=== PATIENT | male | born 1985 | race Caucasian/White ===

== ENCOUNTER 2017-03-18 15:55 | Inpatient (IN) ==
[2017-03-18 17:18] LABS: Hematocrit [HCT] 43.6 % (42.0-52.0); Hemoglobin [HGB] 15.5 g/dL (14.0-18.0); MEAN CORPUSCULAR HEMOGLOBIN 31.6 PG (27-31); MEAN CORPUSCULAR HGB CONC 35.6 g/dL (33-37); MEAN CORPUSCULAR VOLUME 88.8 FL (80-90); MEAN PLATELET VOLUME 11.2 FL (7.4-12.2); RED BLOOD COUNT 4.91 10^6/uL (4.70-6.10)
[2017-03-18 17:31] LABS: BLOOD UREA NITROGEN 15 mg/dL (7-22); BUN/CREATININE RATIO 18.75 (6-20); SERUM ALBUMIN 4.9 g/dL (3.5-4.8)
[2017-03-18] MEDS ORDERED: Sodium Chloride 0.9% 2,000 ML ONE (17:49)
[2017-03-18] MEDS ORDERED: INSULIN REGULAR, HUMAN 100 UNIT/1 ML - 3 ML IV ONE (17:51)
[2017-03-18] MEDS ORDERED: LIDOCAINE W/ SODIUM BICARB 0.5 ML SYR SUBD PRN (17:51)
[2017-03-18] MEDS ORDERED: NORMAL SALINE 10 ML SYRINGE FLUSH IVP PRN (17:51)
[2017-03-18] MEDS ORDERED: ONDANSETRON 4 MG/2 ML VIAL IVP PRN (17:51)
[2017-03-18] MEDS ORDERED: Sodium Chloride 0.9% 2,000 ML PRIMARY IV ONE (17:56)
[2017-03-18] MEDS ORDERED: Insulin Regular Inj 100 UNIT in Sodium Chloride 0.9% 99 ML IV SCH (18:00)
[2017-03-18 18:09] LABS: MAGNESIUM 1.8 mg/dL (1.6-2.4)
[2017-03-18] MEDS ORDERED: LIDOCAINE W/ SODIUM BICARB 0.5 ML SYR ONE (18:31)
--- NOTE | 2017-03-18 18:46 | PDOC ---
HPI - History of Present Illness Date and Time of Service: 03/18/2017, 1842 Chief Complaint: Dry mouth and urinating frequently History of Present Illness: This very pleasant 31-year-old male without prior past medical history who came in today to see Dr. Contreras with complaints of having a very dry mouth, excessive thirst, and urinating frequently at night. He states he symptoms have been noticeable over the last several weeks. He's also noticed that he's lost about 20 pounds, although he cannot give a good timeframe on that. He noticed the loop and his belt was getting looser. He was over 180 pounds at one time and weighed today at 165 pounds. He denies any fevers, chills, nausea or vomiting. He may have had a remote cough but does not recall any particular viral illnesses. Laboratory workup today revealed a blood sugar over 600, hemoglobin A1c over 13, and CO2 at a borderline acidotic level at 23 on his basic metabolic panel. The patient states that he had a family history of diabetes in his grandfather although it is not known if he had type I or type II diabetes. There were no exacerbating factors. The patient tried to treat himself by taking in more fluids. He denies any fevers, headaches, but has had some increased fatigue. Given a lab abnormalities noted with Dr. Contreras, we discussed the patient's situation and I feel it best to directly admit the patient for management of early diabetic ketoacidosis, diabetes education, and starting insulin therapy. Past Medical History Medical History: None Surgical History: None Pertinent Family History: Significant for diabetes in his grandfather. Past Social History: Does not smoke but does occasionally drink. for last year and a half. Works as a truck packer here in town. Has children that are described as healthy. Tobacco Use: Never Smoker In the Past 12 Months, Have Used or Abuse Any of the Following Substance: None Alcohol Use: Occasionally Medication / Allergies Home Medications: Home Medications Medication Instructions Recorded Confirmed Type NK [No Home Medications Reported] 04/22/15 03/18/17 History Allergies/Adverse Reactions: Allergies 3 Allergy/AdvReac Type Severity Reaction Status Date / Time No Known Allergies Allergy Verified 03/18/17 15:30 Review of Systems - Review of Systems All Systems: Reviewed & No Additional Complaints Except as Stated (I did a 12 point review systems and was negative other than that discussed in history present illness.) Exam - Vitals Vital Signs: Vital Signs Temperature 97.8 F Pulse Rate 65 Respiratory Rate 12 Blood Pressure 127/90 Pulse Ox 94 Weight 165 lb - General General Appearance: No Acute Distress, Cooperative - Head Head Exam: Normal Inspection, Normocephalic, Atraumatic - Eye Eye Exam: POSITIVE: No Scleral Icterus - ENT ENT Exam: POSITIVE: Mucous Membranes Dry - Neck Neck Exam: Normal Inspection, No Tenderness, No Lymphadenopathy, No Thyromegaly - Respiratory Respiratory Exam: POSITIVE: Breathing Non Labored, Normal to Percussion and Palpation, Wheezes (Expiratory.) - Cardiovascular Cardiovascular Exam: POSITIVE: RRR, No Murmur, No Clicks, No Gallops, No Rubs, No JVD - GI/Abdominal GI/Abdominal Exam: POSITIVE: Normal Bowel Sounds, Non Tender, Non Distended, Soft - Rectal Rectal Exam: POSITIVE: Deferred - External Exam: POSITIVE: Deferred Exam: POSITIVE: Deferred - Extremities Extremities Exam: POSITIVE: No Clubbing Present, No Edema Present, No Cyanosis Present - Back Back Exam: POSITIVE: No CVA Tenderness - Neurological Neurological Exam: POSITIVE: Alert, Oriented x 3, No Facial Droop, Speech Intact / Clear, Moves All Extremities Equally - Psychiatric Psychiatric Exam: POSITIVE: Normal Affect, Normal Mood - Central Line Examination Central Line Present on Admission: No Results - Labs CBC and BMP: 03/18/17 17:05 03/18/17 17:05 Additional Lab Results: Laboratory Results 03/18/17 03/18/17 03/18/17 Range/Units 17:05 17:05 17:05 WBC 5.32 (4.8-10.8) 10^3/uL RBC 4.91 (4.70-6.10) 10^6/uL Hgb 15.5 (14.0-18.0) g/dL Hct 43.6 (42.0-52.0) % MCV 88.8 (80-90) FL MCH 31.6 H (27-31) PG MCHC 35.6 (33-37) g/dL RDW Std Deviation 36.8 L (39-50) fL RDW Coeff of Chana 11.6 (11.5-14.5) % Plt Count 254 (140-350) 10*3/uL MPV 11.2 (7.4-12.2) FL Sodium 129 L (135-145) meq/L Potassium 5.0 (3.8-5.2) meq/L Chloride 87 L (98-112) meq/L Carbon Dioxide 23 (23-33) meq/L Anion Gap 19 (5-20) BUN 15 (7-22) mg/dL Creatinine 0.8 (0.70-1.50) mg/dL Estimated GFR > 60 (>60 ml/min/1.73m(2)) BUN/Creatinine Ratio 18.75 (6-20) Glucose 689 H* (78-110) mg/dL Calculated Osmolality 301.0 H (267-292) mOsm/kg Calcium 10.3 (8.7-10.7) mg/dL Phosphorus (2.4-4.3) mg/dl Magnesium (1.6-2.4) mg/dL Total Bilirubin 0.9 (0.3-1.2) mg/dL AST 32 (21-57) IU/L ALT 65 (21-72) IU/L Alkaline Phosphatase 111 (38-126) IU/L Total Protein 7.5 (6.1-8.0) g/dL Albumin 4.9 H (3.5-4.8) g/dL Globulin 2.6 (2.50-4.10) g/dL Albumin/Globulin Ratio 1.80 (1.3-2.0) mg/g TSH 1.31 (0.2700-4.2000) uIU/mL Acetone Level (NEGATIVE) 03/18/17 03/18/17 Range/Units 17:55 18:00 WBC (4.8-10.8) 10^3/uL RBC (4.70-6.10) 10^6/uL Hgb (14.0-18.0) g/dL Hct (42.0-52.0) % MCV (80-90) FL MCH (27-31) PG MCHC (33-37) g/dL RDW Std Deviation (39-50) fL RDW Coeff of Chana (11.5-14.5) % Plt Count (140-350) 10*3/uL MPV (7.4-12.2) FL Sodium (135-145) meq/L Potassium (3.8-5.2) meq/L Chloride (98-112) meq/L Carbon Dioxide (23-33) meq/L Anion Gap (5-20) BUN (7-22) mg/dL Creatinine (0.70-1.50) mg/dL Estimated GFR (>60 ml/min/1.73m(2)) BUN/Creatinine Ratio (6-20) Glucose (78-110) mg/dL Calculated Osmolality (267-292) mOsm/kg Calcium (8.7-10.7) mg/dL Phosphorus 4.5 H (2.4-4.3) mg/dl Magnesium 1.8 (1.6-2.4) mg/dL Total Bilirubin (0.3-1.2) mg/dL AST (21-57) IU/L ALT (21-72) IU/L Alkaline Phosphatase (38-126) IU/L Total Protein (6.1-8.0) g/dL Albumin (3.5-4.8) g/dL Globulin (2.50-4.10) g/dL Albumin/Globulin Ratio (1.3-2.0) mg/g TSH (0.2700-4.2000) uIU/mL Acetone Level Small (NEGATIVE) Assessment and Plan - Patient Problems (1) Diabetic ketoacidosis Current Visit: Yes Status: Acute Code(s): E13.10 - Other specified diabetes mellitus with ketoacidosis without coma Qualifiers: Diabetes mellitus type: type 1 Diabetes mellitus complication detail: without coma Qualified Code(s): E10.10 - Type 1 diabetes mellitus with ketoacidosis without coma (2) Diabetes mellitus type I Current Visit: Yes Status: Acute Code(s): E10.9 - Type 1 diabetes mellitus without complications Qualifiers: Diabetes mellitus complication status: with ketoacidosis Diabetes mellitus complication detail: without coma Qualified Code(s): E10.10 - Type 1 diabetes mellitus with ketoacidosis without coma - Assessment / Plan Additional Assessment/Plan Details: After discussing with Dr. Contreras, I felt that it would be best to admit the patient to the intensive care unit. Given that the CO2 on the metabolic panel is around 23, we may be an early diabetic ketoacidosis. This certainly excellent type I diabetes mellitus type seems to fit the patient's body habitus , sudden onset, albeit he would be a little bit out in terms of age. Start insulin drip, give 2 L of normal saline right off the bat, and then reduce to 125 mL per hour. I'll have the patient eat a consistent carbohydrate diet. When the blood sugars 250 or below, we will switch to D5 fluids. Check electrolytes every 4 hours for at least 5 checks. Hopefully tomorrow we can convert the patient to an insulin regimen. Diabetes education and dietary education for diabetes. I will give the patient some handouts and type I diabetes. Try to confirm this as best as we can with a C-peptide level which is artery drawn and is pending, as well as islet cell antibodies. I have sent a couple of those off as well. It may help that the patient eventually visit with an [employer] consultant, but first things first, rehydration, clear acid levels and acetone levels, and I do note that the acetone is in the serum which suggest diabetic ketoacidosis as well and type I diabetes. Given the nature of insulin drips, we'll have the patient in the intensive care unit for close monitoring. Check thyroid status as well. I have discussed with the patient, answered some questions at bedside, but he is a little overwhelmed, we'll try to approach this is slowly as we can to help him absorb as much information as he can during the hospital stay. Both him and his are in agreement with the plan.
[2017-03-18 18:52] LABS: BLOOD UREA NITROGEN 11 mg/dL (7-22)
[2017-03-18] MEDS: ACETAMINOPHEN 325 MG TABLET PO PRN (19:00)
[2017-03-18 19:36] LABS: VENOUS PH 7.35 (7.32-7.42)
[2017-03-18] MEDS: D5-1/2NS + 20mEq KCL 1,000 ML PRIMARY IV SCH (20:30)
[2017-03-18 22:07] LABS: MAGNESIUM 1.6 mg/dL (1.6-2.4)
[2017-03-18 22:08] LABS: BLOOD UREA NITROGEN 13 mg/dL (7-22); BUN/CREATININE RATIO 21.66 (6-20)
[2017-03-18] MEDS ORDERED: Magnesium Sulfate 2gm (Premix) 2 GM/50 ML BAG IV ONE (22:21)
[2017-03-18] MEDS ORDERED: Potassium Phoshate Inj 40 MMOL in D5W 250 ML IV ONE (22:21)
[2017-03-18] MEDS: Sodium Chloride 0.9% 1,000 ML PRIMARY IV SCH (22:44)
[2017-03-19] MEDS ORDERED: PHOS-NAK 1 EACH POWD.PACK PO ONE (00:14)
[2017-03-19] MEDS ORDERED: DEXTROSE 50%-WATER SYRINGE 50 ML SYRINGE ONE (02:10)
[2017-03-19 02:17] LABS: BLOOD UREA NITROGEN 14 mg/dL (7-22); MAGNESIUM 2.2 mg/dL (1.6-2.4)
[2017-03-19] MEDS ORDERED: DEXTROSE 50%-WATER SYRINGE 50 ML SYRINGE IVP ONE (02:42)
[2017-03-19] MEDS: D5-1/2NS + 20mEq KCL 1,000 ML PRIMARY IV SCH ×2 (02:48→12:35)
[2017-03-19] MEDS: Sodium Chloride 0.9% 1,000 ML PRIMARY IV SCH ×2 (02:48→12:34)
[2017-03-19] MEDS ORDERED: Insulin Glargine SoloStar Inj 100 UNIT/ML INSULN.PEN SUBCUT ONE ×2 (03:01→06:46)
[2017-03-19] MEDS ORDERED: Insulin Lispro Flexpen 300 UNIT/3 ML INSULN.PEN SUBCUT ONE ×3 (04:14→10:31)
[2017-03-19 06:24] LABS: CHOL/HDL RATIO 4.51 RATIO (0-4.0); SERUM CHOLESTEROL 122 mg/dL (120-200)
[2017-03-19 06:27] LABS: BLOOD UREA NITROGEN 15 mg/dL (7-22)
[2017-03-19 06:28] LABS: MAGNESIUM 1.8 mg/dL (1.6-2.4)
[2017-03-19] MEDS ORDERED: Insulin Lispro Flexpen 300 UNIT/3 ML INSULN.PEN SUBCUT SCH ×2 (07:00→11:00)
[2017-03-19] MEDS: ACETAMINOPHEN 325 MG TABLET PO PRN (08:03)
[2017-03-19] MEDS ORDERED: Pantoprazole Inj 40 MG in Normal Saline Flush 10 ML IVP SCH (09:00)
[2017-03-19] MEDS ORDERED: ACETAMINOPHEN 325 MG TABLET PO PRN (10:11)
[2017-03-19 10:23] LABS: MAGNESIUM 1.6 mg/dL (1.6-2.4)
[2017-03-19 10:34] LABS: BLOOD UREA NITROGEN 12 mg/dL (7-22)
[2017-03-19] MEDS ORDERED: DEXTROSE 50%-WATER SYRINGE 50 ML SYRINGE IVP PRN (11:43)
[2017-03-19] MEDS ORDERED: Glucagon Inj Vial 1 MG/ML VIAL IM PRN (11:43)
[2017-03-19] MEDS ORDERED: DEXTROSE 31 GM GEL PO PRN (11:43)
[2017-03-19] MEDS ORDERED: Insulin Sliding Scale Protocol SUBCUT PRN (11:43)
[2017-03-19] MEDS: Insulin Lispro Flexpen 300 UNIT/3 ML INSULN.PEN SUBCUT SCH ×5 (12:00→20:17)
[2017-03-19] MEDS: Sodium Chl 0.45% 1,000 ML PRIMARY IV SCH ×2 (14:23→22:34)
[2017-03-19 17:19] LABS: BLOOD UREA NITROGEN 13 mg/dL (7-22); BUN/CREATININE RATIO 21.66 (6-20)
[2017-03-19] MEDS ORDERED: POTASSIUM CHLORIDE 20 MEQ TAB PO ONE (19:51)
--- NOTE | 2017-03-19 19:57 | PDOC(PROG) ---
Date and Time of Service: 03/19/20171953 Interval History: No completes of chest pain, shortness breath, nausea or vomiting. I saw twice today. He seems to be doing much better in terms of managing his blood sugar checks. Feels much better control with that. He feels like he can manage pens for insulin at this point. He still has ketones in the serum. Had headaches earlier this morning but those seem to have resolved. Had a little tightness with breathing and that resolved spontaneously. It might be related to fluid intake via IV fluids. Objective : Data - Labs CBC and BMP: 03/18/17 17:05 03/19/17 17:09 Additional Lab Results: Laboratory Results 03/18/17 03/18/17 03/18/17 Range/Units 17: 17: 17:05 WBC 5.32 (4.8-10.8) 10^3/uL RBC 4.91 (4.70-6.10) 10^6/uL Hgb 15.5 (14.0-18.0) g/dL Hct 43.6 (42.0-52.0) % MCV 88.8 (80-90) FL MCH 31.6 H (27-31) PG MCHC 35.6 (33-37) g/dL RDW Std Deviation 36.8 L (39-50) fL RDW Coeff of Chana 11.6 (11.5-14.5) % Plt Count 254 (140-350) 10*3/uL MPV 11.2 (7.4-12.2) FL VBG pH (7.32-7.42) VBG pCO2 (45-55) mmHg VBG HCO3 (22-26) mmol/L VBG Base Excess (-2-2) MMOL/L Sodium 129 L (135-145) meq/L Potassium 5.0 (3.8-5.2) meq/L Chloride 87 L (98-112) meq/L Carbon Dioxide 23 (23-33) meq/L Anion Gap 19 (5-20) BUN 15 (7-22) mg/dL Creatinine 0.8 (0.70-1.50) mg/dL Estimated GFR > 60 (>60 ml/min/1.73m(2)) BUN/Creatinine Ratio 18.75 (6-20) Glucose 689 H* (78-110) mg/dL Calculated Osmolality 301.0 H (267-292) mOsm/kg Lactic Acid (0.70-2.10) MMOL/L Calcium 10.3 (8.7-10.7) mg/dL Phosphorus (2.4-4.3) mg/dl Magnesium (1.6-2.4) mg/dL Total Bilirubin 0.9 (0.3-1.2) mg/dL AST 32 (21-57) IU/L ALT 65 (21-72) IU/L Alkaline Phosphatase 111 (38-126) IU/L Total Protein 7.5 (6.1-8.0) g/dL Albumin 4.9 H (3.5-4.8) g/dL Globulin 2.6 (2.50-4.10) g/dL Albumin/Globulin Ratio 1.80 (1.3-2.0) mg/g Triglycerides (44-200) mg/dL Cholesterol (120-200) mg/dL LDL Cholesterol, Calc mg/dL VLDL Cholesterol (0-40) mg/dL HDL Cholesterol (40-150) mg/dL Cholesterol/HDL Ratio (0-4.0) RATIO TSH 1.31 (0.2700-4.2000) uIU/mL Free T4 (0.93-1.71) ng/dL Urine Acetone Acetone Level (NEGATIVE) 03/18/17 03/18/17 03/18/17 Range/Units 17:55 18:00 18:35 WBC (4.8-10.8) 10^3/uL RBC (4.70-6.10) 10^6/uL Hgb (14.0-18.0) g/dL Hct (42.0-52.0) % MCV (80-90) FL MCH (27-31) PG MCHC (33-37) g/dL RDW Std Deviation (39-50) fL RDW Coeff of Chana (11.5-14.5) % Plt Count (140-350) 10*3/uL MPV (7.4-12.2) FL VBG pH 7.35 (7.32-7.42) VBG pCO2 30 L (45-55) mmHg VBG HCO3 17 L (22-26) mmol/L VBG Base Excess -9 L (-2-2) MMOL/L Sodium (135-145) meq/L Potassium (3.8-5.2) meq/L Chloride (98-112) meq/L Carbon Dioxide (23-33) meq/L Anion Gap (5-20) BUN (7-22) mg/dL Creatinine (0.70-1.50) mg/dL Estimated GFR (>60 ml/min/1.73m(2)) BUN/Creatinine Ratio (6-20) Glucose (78-110) mg/dL Calculated Osmolality (267-292) mOsm/kg Lactic Acid (0.70-2.10) MMOL/L Calcium (8.7-10.7) mg/dL Phosphorus 4.5 H (2.4-4.3) mg/dl Magnesium 1.8 (1.6-2.4) mg/dL Total Bilirubin (0.3-1.2) mg/dL AST (21-57) IU/L ALT (21-72) IU/L Alkaline Phosphatase (38-126) IU/L Total Protein (6.1-8.0) g/dL Albumin (3.5-4.8) g/dL Globulin (2.50-4.10) g/dL Albumin/Globulin Ratio (1.3-2.0) mg/g Triglycerides (44-200) mg/dL Cholesterol (120-200) mg/dL LDL Cholesterol, Calc mg/dL VLDL Cholesterol (0-40) mg/dL HDL Cholesterol (40-150) mg/dL Cholesterol/HDL Ratio (0-4.0) RATIO TSH (0.2700-4.2000) uIU/mL Free T4 (0.93-1.71) ng/dL Urine Acetone Acetone Level Small (NEGATIVE) 03/18/17 03/18/17 03/18/17 Range/Units 18:41 18:41 21:56 WBC (4.8-10.8) 10^3/uL RBC (4.70-6.10) 10^6/uL Hgb (14.0-18.0) g/dL Hct (42.0-52.0) % MCV (80-90) FL MCH (27-31) PG MCHC (33-37) g/dL RDW Std Deviation (39-50) fL RDW Coeff of Chana (11.5-14.5) % Plt Count (140-350) 10*3/uL MPV (7.4-12.2) FL VBG pH (7.32-7.42) VBG pCO2 (45-55) mmHg VBG HCO3 (22-26) mmol/L VBG Base Excess (-2-2) MMOL/L Sodium 137 137 (135-145) meq/L Potassium 3.0 L D 3.4 L (3.8-5.2) meq/L Chloride 107 101 (98-112) meq/L Carbon Dioxide 17 L 25 (23-33) meq/L Anion Gap 13 11 (5-20) BUN 11 13 (7-22) mg/dL Creatinine 0.5 L 0.6 L (0.70-1.50) mg/dL Estimated GFR > 60 > 60 (>60 ml/min/1.73m(2)) BUN/Creatinine Ratio 22.00 H 21.66 H (6-20) Glucose 361 H 202 H (78-110) mg/dL Calculated Osmolality 297.0 H 289.0 (267-292) mOsm/kg Lactic Acid 0.8 (0.70-2.10) MMOL/L Calcium 6.8 L 8.7 (8.7-10.7) mg/dL Phosphorus (2.4-4.3) mg/dl Magnesium (1.6-2.4) mg/dL Total Bilirubin (0.3-1.2) mg/dL AST (21-57) IU/L ALT (21-72) IU/L Alkaline Phosphatase (38-126) IU/L Total Protein (6.1-8.0) g/dL Albumin (3.5-4.8) g/dL Globulin (2.50-4.10) g/dL Albumin/Globulin Ratio (1.3-2.0) mg/g Triglycerides (44-200) mg/dL Cholesterol (120-200) mg/dL LDL Cholesterol, Calc mg/dL VLDL Cholesterol (0-40) mg/dL HDL Cholesterol (40-150) mg/dL Cholesterol/HDL Ratio (0-4.0) RATIO TSH (0.2700-4.2000) uIU/mL Free T4 (0.93-1.71) ng/dL Urine Acetone Acetone Level (NEGATIVE) 03/18/17 03/19/17 03/19/17 Range/Units 21:56 00:13 02:00 WBC (4.8-10.8) 10^3/uL RBC (4.70-6.10) 10^6/uL Hgb (14.0-18.0) g/dL Hct (42.0-52.0) % MCV (80-90) FL MCH (27-31) PG MCHC (33-37) g/dL RDW Std Deviation (39-50) fL RDW Coeff of Chana (11.5-14.5) % Plt Count (140-350) 10*3/uL MPV (7.4-12.2) FL VBG pH (7.32-7.42) VBG pCO2 (45-55) mmHg VBG HCO3 (22-26) mmol/L VBG Base Excess (-2-2) MMOL/L Sodium 138 (135-145) meq/L Potassium 3.5 L (3.8-5.2) meq/L Chloride 102 (98-112) meq/L Carbon Dioxide 26 (23-33) meq/L Anion Gap 10 (5-20) BUN 14 (7-22) mg/dL Creatinine 0.7 (0.70-1.50) mg/dL Estimated GFR > 60 (>60 ml/min/1.73m(2)) BUN/Creatinine Ratio 20.00 (6-20) Glucose 63 L (78-110) mg/dL Calculated Osmolality 284.0 (267-292) mOsm/kg Lactic Acid (0.70-2.10) MMOL/L Calcium 8.9 (8.7-10.7) mg/dL Phosphorus 2.7 (2.4-4.3) mg/dl Magnesium 1.6 (1.6-2.4) mg/dL Total Bilirubin (0.3-1.2) mg/dL AST (21-57) IU/L ALT (21-72) IU/L Alkaline Phosphatase (38-126) IU/L Total Protein (6.1-8.0) g/dL Albumin (3.5-4.8) g/dL Globulin (2.50-4.10) g/dL Albumin/Globulin Ratio (1.3-2.0) mg/g Triglycerides (44-200) mg/dL Cholesterol (120-200) mg/dL LDL Cholesterol, Calc mg/dL VLDL Cholesterol (0-40) mg/dL HDL Cholesterol (40-150) mg/dL Cholesterol/HDL Ratio (0-4.0) RATIO TSH (0.2700-4.2000) uIU/mL Free T4 (0.93-1.71) ng/dL Urine Acetone Acetone Level Small (NEGATIVE) 03/19/17 03/19/17 03/19/17 Range/Units 02:00 05:09 05:09 WBC (4.8-10.8) 10^3/uL RBC (4.70-6.10) 10^6/uL Hgb (14.0-18.0) g/dL Hct (42.0-52.0) % MCV (80-90) FL MCH (27-31) PG MCHC (33-37) g/dL RDW Std Deviation (39-50) fL RDW Coeff of Chana (11.5-14.5) % Plt Count (140-350) 10*3/uL MPV (7.4-12.2) FL VBG pH (7.32-7.42) VBG pCO2 (45-55) mmHg VBG HCO3 (22-26) mmol/L VBG Base Excess (-2-2) MMOL/L Sodium 135 (135-145) meq/L Potassium 4.2 (3.8-5.2) meq/L Chloride 101 (98-112) meq/L Carbon Dioxide 22 L (23-33) meq/L Anion Gap 12 (5-20) BUN 15 (7-22) mg/dL Creatinine 0.6 L (0.70-1.50) mg/dL Estimated GFR > 60 (>60 ml/min/1.73m(2)) BUN/Creatinine Ratio 25.00 H (6-20) Glucose 251 H (78-110) mg/dL Calculated Osmolality 288.0 (267-292) mOsm/kg Lactic Acid 0.7 (0.70-2.10) MMOL/L Calcium 8.3 L (8.7-10.7) mg/dL Phosphorus 3.4 (2.4-4.3) mg/dl Magnesium 2.2 (1.6-2.4) mg/dL Total Bilirubin (0.3-1.2) mg/dL AST (21-57) IU/L ALT (21-72) IU/L Alkaline Phosphatase (38-126) IU/L Total Protein (6.1-8.0) g/dL Albumin (3.5-4.8) g/dL Globulin (2.50-4.10) g/dL Albumin/Globulin Ratio (1.3-2.0) mg/g Triglycerides 105 (44-200) mg/dL Cholesterol 122 (120-200) mg/dL LDL Cholesterol, Calc 74.000 mg/dL VLDL Cholesterol 21 (0-40) mg/dL HDL Cholesterol 27 L (40-150) mg/dL Cholesterol/HDL Ratio 4.51 H (0-4.0) RATIO TSH (0.2700-4.2000) uIU/mL Free T4 (0.93-1.71) ng/dL Urine Acetone Small Acetone Level Small (NEGATIVE) 03/19/17 03/19/17 03/19/17 Range/Units 05:09 05:09 10:06 WBC (4.8-10.8) 10^3/uL RBC (4.70-6.10) 10^6/uL Hgb (14.0-18.0) g/dL Hct (42.0-52.0) % MCV (80-90) FL MCH (27-31) PG MCHC (33-37) g/dL RDW Std Deviation (39-50) fL RDW Coeff of Chana (11.5-14.5) % Plt Count (140-350) 10*3/uL MPV (7.4-12.2) FL VBG pH (7.32-7.42) VBG pCO2 (45-55) mmHg VBG HCO3 (22-26) mmol/L VBG Base Excess (-2-2) MMOL/L Sodium 134 L (135-145) meq/L Potassium 4.3 (3.8-5.2) meq/L Chloride 101 (98-112) meq/L Carbon Dioxide 21 L (23-33) meq/L Anion Gap 12 (5-20) BUN 12 (7-22) mg/dL Creatinine 0.6 L (0.70-1.50) mg/dL Estimated GFR > 60 (>60 ml/min/1.73m(2)) BUN/Creatinine Ratio 20.00 (6-20) Glucose 348 H (78-110) mg/dL Calculated Osmolality 291.0 (267-292) mOsm/kg Lactic Acid (0.70-2.10) MMOL/L Calcium 8.7 (8.7-10.7) mg/dL Phosphorus 4.9 H (2.4-4.3) mg/dl Magnesium 1.8 (1.6-2.4) mg/dL Total Bilirubin (0.3-1.2) mg/dL AST (21-57) IU/L ALT (21-72) IU/L Alkaline Phosphatase (38-126) IU/L Total Protein (6.1-8.0) g/dL Albumin (3.5-4.8) g/dL Globulin (2.50-4.10) g/dL Albumin/Globulin Ratio (1.3-2.0) mg/g Triglycerides (44-200) mg/dL Cholesterol (120-200) mg/dL LDL Cholesterol, Calc mg/dL VLDL Cholesterol (0-40) mg/dL HDL Cholesterol (40-150) mg/dL Cholesterol/HDL Ratio (0-4.0) RATIO TSH (0.2700-4.2000) uIU/mL Free T4 1.48 (0.93-1.71) ng/dL Urine Acetone Acetone Level (NEGATIVE) 03/19/17 03/19/17 Range/Units 10:06 17:09 WBC (4.8-10.8) 10^3/uL RBC (4.70-6.10) 10^6/uL Hgb (14.0-18.0) g/dL Hct (42.0-52.0) % MCV (80-90) FL MCH (27-31) PG MCHC (33-37) g/dL RDW Std Deviation (39-50) fL RDW Coeff of Chana (11.5-14.5) % Plt Count (140-350) 10*3/uL MPV (7.4-12.2) FL VBG pH (7.32-7.42) VBG pCO2 (45-55) mmHg VBG HCO3 (22-26) mmol/L VBG Base Excess (-2-2) MMOL/L Sodium 136 (135-145) meq/L Potassium 3.5 L (3.8-5.2) meq/L Chloride 104 (98-112) meq/L Carbon Dioxide 23 (23-33) meq/L Anion Gap 9 (5-20) BUN 13 (7-22) mg/dL Creatinine 0.6 L (0.70-1.50) mg/dL Estimated GFR > 60 (>60 ml/min/1.73m(2)) BUN/Creatinine Ratio 21.66 H (6-20) Glucose 98 (78-110) mg/dL Calculated Osmolality 281.0 (267-292) mOsm/kg Lactic Acid (0.70-2.10) MMOL/L Calcium 8.8 (8.7-10.7) mg/dL Phosphorus 3.6 (2.4-4.3) mg/dl Magnesium 1.6 (1.6-2.4) mg/dL Total Bilirubin (0.3-1.2) mg/dL AST (21-57) IU/L ALT (21-72) IU/L Alkaline Phosphatase (38-126) IU/L Total Protein (6.1-8.0) g/dL Albumin (3.5-4.8) g/dL Globulin (2.50-4.10) g/dL Albumin/Globulin Ratio (1.3-2.0) mg/g Triglycerides (44-200) mg/dL Cholesterol (120-200) mg/dL LDL Cholesterol, Calc mg/dL VLDL Cholesterol (0-40) mg/dL HDL Cholesterol (40-150) mg/dL Cholesterol/HDL Ratio (0-4.0) RATIO TSH (0.2700-4.2000) uIU/mL Free T4 (0.93-1.71) ng/dL Urine Acetone Acetone Level Small (NEGATIVE) Objective : Exam - General General Appearance: No Acute Distress, Cooperative Additional General Exam Details: Bedside Blood Glucose Finger Stick Blood Glucose 94 Finger Stick Blood Glucose 210 Finger Stick Blood Glucose 270 Finger Stick Blood Glucose 359 Finger Stick Blood Glucose 294 Finger Stick Blood Glucose 210 Finger Stick Blood Glucose 233 Finger Stick Blood Glucose 237 Finger Stick Blood Glucose 220 Finger Stick Blood Glucose 150 Finger Stick Blood Glucose 66 Finger Stick Blood Glucose 76 Finger Stick Blood Glucose 76 Finger Stick Blood Glucose 101 Finger Stick Blood Glucose 106 Finger Stick Blood Glucose 198 Finger Stick Blood Glucose 206 Finger Stick Blood Glucose 248 Finger Stick Blood Glucose 248 Finger Stick Blood Glucose 334 Finger Stick Blood Glucose 334 Finger Stick Blood Glucose 334 Finger Stick Blood Glucose 334 Vital Signs - Last Taken Temperature 97.6 F 03/19/17 17:56 Pulse Rate 68 03/19/17 17:56 Respiratory Rate 12 03/19/17 17:56 Blood Pressure 109/78 03/19/17 17:56 Pulse Ox 96 03/19/17 17:56 - Eye Eye Exam: No Scleral Icterus - ENT ENT Exam: Mucous Membranes Moist - Respiratory Respiratory Exam: Clear to Auscultation - Bilaterally, Breathing Non Labored - Cardiovascular Cardiovascular Exam: RRR, No Murmur, No Clicks, No Gallops, No Rubs, No JVD - GI/Abdominal GI/Abdominal Exam: Normal Bowel Sounds, Non Tender, Non Distended, Soft - Extremities Extremities Exam: No Clubbing Present, No Edema Present, No Cyanosis Present - Neurological Neurological Exam: Alert, Oriented x 3, Normal Gait, No Facial Droop, Speech Intact / Clear, Moves All Extremities Equally - Psychiatric Psychiatric Exam: Normal Affect, Normal Mood Assessment and Plan - Patient Problems (1) Diabetic ketoacidosis Current Visit: Yes Status: Acute Code(s): E13.10 - Other specified diabetes mellitus with ketoacidosis without coma Qualifiers: Diabetes mellitus type: type 1 Diabetes mellitus complication detail: without coma Qualified Code(s): E10.10 - Type 1 diabetes mellitus with ketoacidosis without coma (2) Diabetes mellitus type I Current Visit: Yes Status: Acute Code(s): E10.9 - Type 1 diabetes mellitus without complications Qualifiers: Diabetes mellitus complication status: with ketoacidosis Diabetes mellitus complication detail: without coma Qualified Code(s): E10.10 - Type 1 diabetes mellitus with ketoacidosis without coma - Assessment / Plan Additional Assessment/Plan Details: Overall, DKA is resolving, but ketones are still present in the serum, so we do have the patient on insulin and fluids. His anion gap is normal. His CO2 and his basic metabolic panel is normal at this time. It looks like he's around 80 units of insulin on a 24-hour basis, so we will start with Lantus at around 30 units at night and 10 units of scheduled lispro with meals and we will do correction dose lispro as well. I would like to continue diabetes education, nutritional education, but the patient practices finger blood glucose tests, and practice insulin administration, and if ketones can be cleared by tomorrow, we could consider discharge tomorrow. Transferred out of the ICU today. We have follow-up appointments arranged for the patient.
[2017-03-19] MEDS ORDERED: Insulin Glargine SoloStar Inj 100 UNIT/ML INSULN.PEN SUBCUT SCH ×3 (21:00)
[2017-03-20] MEDS ORDERED: Insulin Lispro Flexpen 300 UNIT/3 ML INSULN.PEN SUBCUT PRN (00:34)
[2017-03-20] MEDS: Sodium Chl 0.45% 1,000 ML PRIMARY IV SCH (04:00)
[2017-03-20 04:10] VITALS: RESP 16
[2017-03-20 07:16] LABS: BLOOD UREA NITROGEN 9 mg/dL (7-22)
[2017-03-20] MEDS: Insulin Lispro Flexpen 300 UNIT/3 ML INSULN.PEN SUBCUT SCH ×4 (08:33→11:53)
[2017-03-20 09:37] VITALS: BP 117/65; TEMP 98.2; O2SAT 95
--- NOTE | 2017-03-20 13:37 | DCSUMMARY ---
Hospitalization Summary Admit Date: 03/18/17 Discharge Date: 03/20/17 Primary Diagnosis:: diabetic ketoacidosis, resolved. Secondary Diagnosis:: Newly diagnosed type I diabetes mellitus Hospital Course: This very pleasant 31-year-old male that was sent in after he came in with polyuria and polydipsia and weight loss and saw Dr. Contreras for this. He was found to have a blood sugar of over 600 and had a decreased CO2 level. He was admitted, found to have evidence of diabetes mellitus type I and diabetic ketoacidosis. We sent off insulin autoantibodies to confirm. They're pending at this time. We treated the patient with insulin drip initially, and then converted him to a regimen of Lantus and lispro. His blood sugars are much better controlled, his acetones have resolved from the serum, and he is ready to go home. He is understanding how to do blood sugar checks and is doing those 4 times a day. He demonstrated good mastery of those skills prior to discharge. He is also able to give himself insulin shots and seems to understand that very well with the [employer] start pen systems. He again showed good mastery of the skills prior to discharge. Diabetes education and dietary education was provided. Electrolytes were replaced during the hospital stay as well. This included magnesium and potassium primarily. Today, no clicks chest pain, shortness breath, nausea or vomiting. Assessment and Plan: 1. As per discharge assessments noted 2. Disposition: Patient is discharged home. 3. Condition on discharge, stable and improved. 4. Diet: regular diet/diabetic diet. 5. Activities: resume normal activities, but not cleared to work until cleared by primary care provider. 6. Follow-Up: 1. Dr. Contreras 2. Dr. Jasso 7. Medications at the Time of Discharge: Home Medications Medication Instructions Recorded Confirmed Type Insulin Glargine SoloStar Inj 35 unit SUBCUT BEDTIME #1 03/20/17 Rx [Lantus SoloStar Inj] insuln.pen Insulin Lispro Flexpen Inj 12 unit SUBCUT AC #1 insuln.pen 03/20/17 Rx [HumaLOG Flexpen Inj] 8. Time, care, counseling and coordination of care for this discharge is greater than 30 minutes. Exam - Vitals Vital Signs: Vital Signs Temperature 98.2 F Temperature Source Temporal Artery Scan Pulse Rate [Telemetry] 63 Pulse Rate 73 Respiratory Rate 16 Blood Pressure [Left Arm] 120/81 Blood Pressure 117/65 Pulse Ox 95 Oxygen Flow Rate RA Oxygen Delivery Method Room Air Height 5 ft 5 in Weight 169 lb 9.6 oz - General General Appearance: No Acute Distress, Cooperative - Head Head Exam: Normal Inspection, Normocephalic, Atraumatic - Eye Eye Exam: POSITIVE: No Scleral Icterus - ENT ENT Exam: POSITIVE: Mucous Membranes Moist - Respiratory Respiratory Exam: POSITIVE: Clear to Auscultation - Bilaterally, Breathing Non Labored - Cardiovascular Cardiovascular Exam: POSITIVE: RRR, No Murmur, No Clicks, No Gallops, No Rubs, No JVD - GI/Abdominal GI/Abdominal Exam: POSITIVE: Normal Bowel Sounds, Non Tender, Non Distended, Soft - Extremities Extremities Exam: POSITIVE: No Clubbing Present, No Edema Present, No Cyanosis Present - Neurological Neurological Exam: POSITIVE: Alert, Oriented x 3, No Facial Droop, Speech Intact / Clear, Moves All Extremities Equally - Psychiatric Psychiatric Exam: POSITIVE: Normal Affect, Normal Mood Data Perinent Studies: Laboratory Results 03/18/17 03/18/17 03/18/17 Range/Units 17:05 17:05 17:05 WBC 5.32 (4.8-10.8) 10^3/uL RBC 4.91 (4.70-6.10) 10^6/uL Hgb 15.5 (14.0-18.0) g/dL Hct 43.6 (42.0-52.0) % MCV 88.8 (80-90) FL MCH 31.6 H (27-31) PG MCHC 35.6 (33-37) g/dL RDW Std Deviation 36.8 L (39-50) fL RDW Coeff of Chana 11.6 (11.5-14.5) % Plt Count 254 (140-350) 10*3/uL MPV 11.2 (7.4-12.2) FL VBG pH (7.32-7.42) VBG pCO2 (45-55) mmHg VBG HCO3 (22-26) mmol/L VBG Base Excess (-2-2) MMOL/L Sodium 129 L (135-145) meq/L Potassium 5.0 (3.8-5.2) meq/L Chloride 87 L (98-112) meq/L Carbon Dioxide 23 (23-33) meq/L Anion Gap 19 (5-20) BUN 15 (7-22) mg/dL Creatinine 0.8 (0.70-1.50) mg/dL Estimated GFR > 60 (>60 ml/min/1.73m(2)) BUN/Creatinine Ratio 18.75 (6-20) Glucose 689 H* (78-110) mg/dL Calculated Osmolality 301.0 H (267-292) mOsm/kg Lactic Acid (0.70-2.10) MMOL/L Calcium 10.3 (8.7-10.7) mg/dL Phosphorus (2.4-4.3) mg/dl Magnesium (1.6-2.4) mg/dL Total Bilirubin 0.9 (0.3-1.2) mg/dL AST 32 (21-57) IU/L ALT 65 (21-72) IU/L Alkaline Phosphatase 111 (38-126) IU/L Total Protein 7.5 (6.1-8.0) g/dL Albumin 4.9 H (3.5-4.8) g/dL Globulin 2.6 (2.50-4.10) g/dL Albumin/Globulin Ratio 1.80 (1.3-2.0) mg/g Triglycerides (44-200) mg/dL Cholesterol (120-200) mg/dL LDL Cholesterol, Calc mg/dL VLDL Cholesterol (0-40) mg/dL HDL Cholesterol (40-150) mg/dL Cholesterol/HDL Ratio (0-4.0) RATIO TSH 1.31 (0.2700-4.2000) uIU/mL Free T4 (0.93-1.71) ng/dL Urine Acetone Acetone Level (NEGATIVE) 03/18/17 03/18/17 03/18/17 Range/Units 17:55 18:00 18:35 WBC (4.8-10.8) 10^3/uL RBC (4.70-6.10) 10^6/uL Hgb (14.0-18.0) g/dL Hct (42.0-52.0) % MCV (80-90) FL MCH (27-31) PG MCHC (33-37) g/dL RDW Std Deviation (39-50) fL RDW Coeff of Chana (11.5-14.5) % Plt Count (140-350) 10*3/uL MPV (7.4-12.2) FL VBG pH 7.35 (7.32-7.42) VBG pCO2 30 L (45-55) mmHg VBG HCO3 17 L (22-26) mmol/L VBG Base Excess -9 L (-2-2) MMOL/L Sodium (135-145) meq/L Potassium (3.8-5.2) meq/L Chloride (98-112) meq/L Carbon Dioxide (23-33) meq/L Anion Gap (5-20) BUN (7-22) mg/dL Creatinine (0.70-1.50) mg/dL Estimated GFR (>60 ml/min/1.73m(2)) BUN/Creatinine Ratio (6-20) Glucose (78-110) mg/dL Calculated Osmolality (267-292) mOsm/kg Lactic Acid (0.70-2.10) MMOL/L Calcium (8.7-10.7) mg/dL Phosphorus 4.5 H (2.4-4.3) mg/dl Magnesium 1.8 (1.6-2.4) mg/dL Total Bilirubin (0.3-1.2) mg/dL AST (21-57) IU/L ALT (21-72) IU/L Alkaline Phosphatase (38-126) IU/L Total Protein (6.1-8.0) g/dL Albumin (3.5-4.8) g/dL Globulin (2.50-4.10) g/dL Albumin/Globulin Ratio (1.3-2.0) mg/g Triglycerides (44-200) mg/dL Cholesterol (120-200) mg/dL LDL Cholesterol, Calc mg/dL VLDL Cholesterol (0-40) mg/dL HDL Cholesterol (40-150) mg/dL Cholesterol/HDL Ratio (0-4.0) RATIO TSH (0.2700-4.2000) uIU/mL Free T4 (0.93-1.71) ng/dL Urine Acetone Acetone Level Small (NEGATIVE) 03/18/17 03/18/17 03/18/17 Range/Units 18:41 18:41 21:56 WBC (4.8-10.8) 10^3/uL RBC (4.70-6.10) 10^6/uL Hgb (14.0-18.0) g/dL Hct (42.0-52.0) % MCV (80-90) FL MCH (27-31) PG MCHC (33-37) g/dL RDW Std Deviation (39-50) fL RDW Coeff of Chana (11.5-14.5) % Plt Count (140-350) 10*3/uL MPV (7.4-12.2) FL VBG pH (7.32-7.42) VBG pCO2 (45-55) mmHg VBG HCO3 (22-26) mmol/L VBG Base Excess (-2-2) MMOL/L Sodium 137 137 (135-145) meq/L Potassium 3.0 L D 3.4 L (3.8-5.2) meq/L Chloride 107 101 (98-112) meq/L Carbon Dioxide 17 L 25 (23-33) meq/L Anion Gap 13 11 (5-20) BUN 11 13 (7-22) mg/dL Creatinine 0.5 L 0.6 L (0.70-1.50) mg/dL Estimated GFR > 60 > 60 (>60 ml/min/1.73m(2)) BUN/Creatinine Ratio 22.00 H 21.66 H (6-20) Glucose 361 H 202 H (78-110) mg/dL Calculated Osmolality 297.0 H 289.0 (267-292) mOsm/kg Lactic Acid 0.8 (0.70-2.10) MMOL/L Calcium 6.8 L 8.7 (8.7-10.7) mg/dL Phosphorus (2.4-4.3) mg/dl Magnesium (1.6-2.4) mg/dL Total Bilirubin (0.3-1.2) mg/dL AST (21-57) IU/L ALT (21-72) IU/L Alkaline Phosphatase (38-126) IU/L Total Protein (6.1-8.0) g/dL Albumin (3.5-4.8) g/dL Globulin (2.50-4.10) g/dL Albumin/Globulin Ratio (1.3-2.0) mg/g Triglycerides (44-200) mg/dL Cholesterol (120-200) mg/dL LDL Cholesterol, Calc mg/dL VLDL Cholesterol (0-40) mg/dL HDL Cholesterol (40-150) mg/dL Cholesterol/HDL Ratio (0-4.0) RATIO TSH (0.2700-4.2000) uIU/mL Free T4 (0.93-1.71) ng/dL Urine Acetone Acetone Level (NEGATIVE) 03/18/17 03/19/17 03/19/17 Range/Units 21:56 00:13 02:00 WBC (4.8-10.8) 10^3/uL RBC (4.70-6.10) 10^6/uL Hgb (14.0-18.0) g/dL Hct (42.0-52.0) % MCV (80-90) FL MCH (27-31) PG MCHC (33-37) g/dL RDW Std Deviation (39-50) fL RDW Coeff of Chana (11.5-14.5) % Plt Count (140-350) 10*3/uL MPV (7.4-12.2) FL VBG pH (7.32-7.42) VBG pCO2 (45-55) mmHg VBG HCO3 (22-26) mmol/L VBG Base Excess (-2-2) MMOL/L Sodium 138 (135-145) meq/L Potassium 3.5 L (3.8-5.2) meq/L Chloride 102 (98-112) meq/L Carbon Dioxide 26 (23-33) meq/L Anion Gap 10 (5-20) BUN 14 (7-22) mg/dL Creatinine 0.7 (0.70-1.50) mg/dL Estimated GFR > 60 (>60 ml/min/1.73m(2)) BUN/Creatinine Ratio 20.00 (6-20) Glucose 63 L (78-110) mg/dL Calculated Osmolality 284.0 (267-292) mOsm/kg Lactic Acid (0.70-2.10) MMOL/L Calcium 8.9 (8.7-10.7) mg/dL Phosphorus 2.7 (2.4-4.3) mg/dl Magnesium 1.6 (1.6-2.4) mg/dL Total Bilirubin (0.3-1.2) mg/dL AST (21-57) IU/L ALT (21-72) IU/L Alkaline Phosphatase (38-126) IU/L Total Protein (6.1-8.0) g/dL Albumin (3.5-4.8) g/dL Globulin (2.50-4.10) g/dL Albumin/Globulin Ratio (1.3-2.0) mg/g Triglycerides (44-200) mg/dL Cholesterol (120-200) mg/dL LDL Cholesterol, Calc mg/dL VLDL Cholesterol (0-40) mg/dL HDL Cholesterol (40-150) mg/dL Cholesterol/HDL Ratio (0-4.0) RATIO TSH (0.2700-4.2000) uIU/mL Free T4 (0.93-1.71) ng/dL Urine Acetone Acetone Level Small (NEGATIVE) 03/19/17 03/19/17 03/19/17 Range/Units 02:00 05:09 05:09 WBC (4.8-10.8) 10^3/uL RBC (4.70-6.10) 10^6/uL Hgb (14.0-18.0) g/dL Hct (42.0-52.0) % MCV (80-90) FL MCH (27-31) PG MCHC (33-37) g/dL RDW Std Deviation (39-50) fL RDW Coeff of Chana (11.5-14.5) % Plt Count (140-350) 10*3/uL MPV (7.4-12.2) FL VBG pH (7.32-7.42) VBG pCO2 (45-55) mmHg VBG HCO3 (22-26) mmol/L VBG Base Excess (-2-2) MMOL/L Sodium 135 (135-145) meq/L Potassium 4.2 (3.8-5.2) meq/L Chloride 101 (98-112) meq/L Carbon Dioxide 22 L (23-33) meq/L Anion Gap 12 (5-20) BUN 15 (7-22) mg/dL Creatinine 0.6 L (0.70-1.50) mg/dL Estimated GFR > 60 (>60 ml/min/1.73m(2)) BUN/Creatinine Ratio 25.00 H (6-20) Glucose 251 H (78-110) mg/dL Calculated Osmolality 288.0 (267-292) mOsm/kg Lactic Acid 0.7 (0.70-2.10) MMOL/L Calcium 8.3 L (8.7-10.7) mg/dL Phosphorus 3.4 (2.4-4.3) mg/dl Magnesium 2.2 (1.6-2.4) mg/dL Total Bilirubin (0.3-1.2) mg/dL AST (21-57) IU/L ALT (21-72) IU/L Alkaline Phosphatase (38-126) IU/L Total Protein (6.1-8.0) g/dL Albumin (3.5-4.8) g/dL Globulin (2.50-4.10) g/dL Albumin/Globulin Ratio (1.3-2.0) mg/g Triglycerides 105 (44-200) mg/dL Cholesterol 122 (120-200) mg/dL LDL Cholesterol, Calc 74.000 mg/dL VLDL Cholesterol 21 (0-40) mg/dL HDL Cholesterol 27 L (40-150) mg/dL Cholesterol/HDL Ratio 4.51 H (0-4.0) RATIO TSH (0.2700-4.2000) uIU/mL Free T4 (0.93-1.71) ng/dL Urine Acetone Small Acetone Level Small (NEGATIVE) 03/19/17 03/19/17 03/19/17 Range/Units 05:09 05:09 10:06 WBC (4.8-10.8) 10^3/uL RBC (4.70-6.10) 10^6/uL Hgb (14.0-18.0) g/dL Hct (42.0-52.0) % MCV (80-90) FL MCH (27-31) PG MCHC (33-37) g/dL RDW Std Deviation (39-50) fL RDW Coeff of Chana (11.5-14.5) % Plt Count (140-350) 10*3/uL MPV (7.4-12.2) FL VBG pH (7.32-7.42) VBG pCO2 (45-55) mmHg VBG HCO3 (22-26) mmol/L VBG Base Excess (-2-2) MMOL/L Sodium 134 L (135-145) meq/L Potassium 4.3 (3.8-5.2) meq/L Chloride 101 (98-112) meq/L Carbon Dioxide 21 L (23-33) meq/L Anion Gap 12 (5-20) BUN 12 (7-22) mg/dL Creatinine 0.6 L (0.70-1.50) mg/dL Estimated GFR > 60 (>60 ml/min/1.73m(2)) BUN/Creatinine Ratio 20.00 (6-20) Glucose 348 H (78-110) mg/dL Calculated Osmolality 291.0 (267-292) mOsm/kg Lactic Acid (0.70-2.10) MMOL/L Calcium 8.7 (8.7-10.7) mg/dL Phosphorus 4.9 H (2.4-4.3) mg/dl Magnesium 1.8 (1.6-2.4) mg/dL Total Bilirubin (0.3-1.2) mg/dL AST (21-57) IU/L ALT (21-72) IU/L Alkaline Phosphatase (38-126) IU/L Total Protein (6.1-8.0) g/dL Albumin (3.5-4.8) g/dL Globulin (2.50-4.10) g/dL Albumin/Globulin Ratio (1.3-2.0) mg/g Triglycerides (44-200) mg/dL Cholesterol (120-200) mg/dL LDL Cholesterol, Calc mg/dL VLDL Cholesterol (0-40) mg/dL HDL Cholesterol (40-150) mg/dL Cholesterol/HDL Ratio (0-4.0) RATIO TSH (0.2700-4.2000) uIU/mL Free T4 1.48 (0.93-1.71) ng/dL Urine Acetone Acetone Level (NEGATIVE) 03/19/17 03/19/17 03/20/17 Range/Units 10:06 17:09 06:03 WBC (4.8-10.8) 10^3/uL RBC (4.70-6.10) 10^6/uL Hgb (14.0-18.0) g/dL Hct (42.0-52.0) % MCV (80-90) FL MCH (27-31) PG MCHC (33-37) g/dL RDW Std Deviation (39-50) fL RDW Coeff of Chana (11.5-14.5) % Plt Count (140-350) 10*3/uL MPV (7.4-12.2) FL VBG pH (7.32-7.42) VBG pCO2 (45-55) mmHg VBG HCO3 (22-26) mmol/L VBG Base Excess (-2-2) MMOL/L Sodium 136 137 (135-145) meq/L Potassium 3.5 L 3.8 (3.8-5.2) meq/L Chloride 104 107 (98-112) meq/L Carbon Dioxide 23 23 (23-33) meq/L Anion Gap 9 7 (5-20) BUN 13 9 (7-22) mg/dL Creatinine 0.6 L 0.6 L (0.70-1.50) mg/dL Estimated GFR > 60 > 60 (>60 ml/min/1.73m(2)) BUN/Creatinine Ratio 21.66 H 15.00 (6-20) Glucose 98 194 H (78-110) mg/dL Calculated Osmolality 281.0 287.0 (267-292) mOsm/kg Lactic Acid (0.70-2.10) MMOL/L Calcium 8.8 8.7 (8.7-10.7) mg/dL Phosphorus 3.6 (2.4-4.3) mg/dl Magnesium 1.6 (1.6-2.4) mg/dL Total Bilirubin (0.3-1.2) mg/dL AST (21-57) IU/L ALT (21-72) IU/L Alkaline Phosphatase (38-126) IU/L Total Protein (6.1-8.0) g/dL Albumin (3.5-4.8) g/dL Globulin (2.50-4.10) g/dL Albumin/Globulin Ratio (1.3-2.0) mg/g Triglycerides (44-200) mg/dL Cholesterol (120-200) mg/dL LDL Cholesterol, Calc mg/dL VLDL Cholesterol (0-40) mg/dL HDL Cholesterol (40-150) mg/dL Cholesterol/HDL Ratio (0-4.0) RATIO TSH (0.2700-4.2000) uIU/mL Free T4 (0.93-1.71) ng/dL Urine Acetone Acetone Level Small Negative (NEGATIVE) Patient Problems - Patient Problem List (1) Diabetic ketoacidosis Current Visit: Yes Status: Resolved Code(s): E13.10 - Other specified diabetes mellitus with ketoacidosis without coma Qualifiers: Diabetes mellitus type: type 1 Diabetes mellitus complication detail: without coma Qualified Code(s): E10.10 - Type 1 diabetes mellitus with ketoacidosis without coma Category: Medical (2) Diabetes mellitus type I Current Visit: Yes Status: Acute Code(s): E10.9 - Type 1 diabetes mellitus without complications Qualifiers: Diabetes mellitus complication status: with ketoacidosis Diabetes mellitus complication detail: without coma Qualified Code(s): E10.10 - Type 1 diabetes mellitus with ketoacidosis without coma Category: Medical
== END 2017-03-20 14:13 | disposition home or self-care (01) | DRG 639 ==
LOC: MOB LAB 15:55 → ICU 17:36 → MED/SURG 03-19 09:09
PROVIDERS: ADMIT Family Medicine; ATTEND Family Medicine